=== PATIENT | female | born 1935 | race Hispanic/Latino ===

== ENCOUNTER 2020-12-05 09:34 | Outpatient (CLI) | payer MEDICARE ==
[2020-12-05 09:42] LABS: #Basophils 0.1 thou/uL (0.0-0.2); #Eosinphils 0.1 thou/uL (0.0-0.7); #Monocytes 0.8 thou/uL (0.11-0.59); #Neutrophils 5.1 thou/uL (1.40-6.50); %Basophils 1.7 % (0.0-1.0); %Eosinophils 1.1 % (0.0-10.0); %Lymphocytes 24.3 % (21.0-51.0); %Neutrophils 62.9 % (42.0-75.0); Hemoglobin 12.7 g/dL (12.0-16.0); Mean Corpuscular HGB CONC 31.9 g/dL (32.0-36.0); Mean Corpuscular Hemoglobin 30.3 pg (27.0-31.0); Mean Corpuscular Volume 94.9 fL (78.0-98.0); Mean Platelet Volume 6.2 fL (7.4-10.4); Platelet Count 425 thou/uL (130-400); RBC Distribution Width 13.9 % (11.5-14.5); White Blood Cell (WBC) Count 8.1 thou/uL (4.8-10.8)
[2020-12-05 10:05] LABS: ALT (SGPT) 10 U/L (8-55); AST (SGOT) 14 U/L (5-34); Albumin 3.6 g/dL (3.4-4.8); Alkaline Phosphatase 81 U/L (40-110); Anion Gap 16 mmol/L (10-20); BUN (Urea Nitrogen) 22 mg/dL (9.8-20.1); Bilirubin, Total 0.4 mg/dL (0.2-1.2); Calc. Creatinine Clearance 0 mL/min (70-130); Calcium 9.5 mg/dL (7.8-10.44); Carbon Dioxide 26 mmol/L (23-31); Cardiac Risk 2.3 (Less than 4.5); Chloride 102 mmol/L (98-107); Cholesterol 126 mg/dl (< 200 Desired); Globulin 3.5 g/dL (2.4-3.5); Glucose 131 mg/dL (83-110); HDL Cholesterol 54 mg/dL (>60 Neg Risk); LDL Cholesterol, Calculated 49 mg/dL; Potassium 4.6 mmol/L (3.5-5.1); Protein, Total 7.1 g/dL (6.0-8.3); Sodium 139 mmol/L (136-145); Triglycerides 116 mg/dL (Less than 150)
[2020-12-05 17:14] LABS: Hemoglobin A1c 9.5 % (4.0-6.0)
== END 2020-12-05 09:35 | disposition home or self-care (01) ==
LOC: MADLAB 09:34
PROVIDERS: ATTEND Family Medicine
DX: E03.9 Hypothyroidism, unspecified (principal); E78.5 Hyperlipidemia, unspecified; E11.9 Type 2 diabetes mellitus without complications; I10 Essential (primary) hypertension
CPT/HCPCS: 80053; 80061; 83036; 84443; 85025

== ENCOUNTER 2020-12-25 15:19 | Outpatient (CLI) | payer MEDICARE ==
--- NOTE | 2020-12-25 16:48 | CT ---
CT OF THE ABDOMEN AND PELVIS WITH IV CONTRAST INDICATION: Right upper quadrant abdominal pain for 2 weeks of loss of appetite COMPARISON: None FINDINGS: ABDOMEN: Lung bases: There are patchy areas of interstitial and groundglass opacity involving both lower lobe suspicious for an atypical pneumonia. Liver: There is a small focal area of hypodensity adjacent to falciform ligament suspicious for an ar ea of focal fatty infiltration. Gallbladder: Normal appearing. Pancreas: Normal. Adrenal glands: Normal. Spleen: Normal. Kidneys and ureters: Normal. No hydronephrosis. Vasculature: There are mild vascular calcifications seen involving the visualized vasculature. Lymph nodes:No lymphadenopathy. Free fluid in abdomen:No free fluid is evident. PELVIS: Small and large bowel: There is a moderate amount retained stool within the colon. Small bowel is of normal caliber. Appendix:Normal Bladder: There is mild wall thickening and moderate distention of the bladder. Rectal and perirectal soft tissues:Normal. Reproductive structures: Uterus is surgically absent. The right and left ovary are present. Free fluid in pelvis: No free fluid is evident. Lymphadenopathy pelvis: No lymphadenopathy is evident. Osseous structures: There is mild diffuse osteopenia. There is scattered degenerative and osteoarthr itic changes. There is a left hip endoprosthesis. Soft tissues:Normal. IMPRESSION: 1. Bibasilar interstitial and airspace opacities suspicious for an atypical pneumonia. Recommend kasandra elation with Covid 19 status. 2. Findings suspicious for areas of focal fatty infiltration near the falciform ligament in the right hepatic lobe. 3. Moderate distention of the bladder. There is suggested mild thickening of the bladder wall which m ay reflect component of cystitis. Recommend correlation with urinary laboratories.
== END 2020-12-25 15:20 | disposition home or self-care (01) ==
LOC: MADCT 15:19
PROVIDERS: ATTEND Family Medicine
DX: R10.9 Unspecified abdominal pain (principal); R91.8 Other nonspecific abnormal finding of lung field; N32.89 Other specified disorders of bladder
CPT/HCPCS: 74177

== ENCOUNTER 2024-12-20 12:09 | Emergency (ER) | payer MEDICARE ==
[2024-12-20 13:35] LABS: #Basophils 0.1 thou/uL (0.0-0.2); #Lymphocytes 1.4 thou/uL (1.20-3.40); #Monocytes 0.5 thou/uL (0.11-0.59); #Neutrophils 4.5 thou/uL (1.40-6.50); %Basophils 0.9 % (0.0-1.0); %Eosinophils 0.2 % (0.0-10.0); %Lymphocytes 21.1 % (21.0-51.0); %Monocytes 7.5 % (0.0-10.0); %Neutrophils 70.3 % (42.0-75.0); Hematocrit 39.4 % (36.0-47.0); Hemoglobin 12.5 g/dL (12.0-16.0); Mean Corpuscular HGB CONC 31.7 g/dL (32.0-36.0); Mean Corpuscular Hemoglobin 28.9 pg (27.0-31.0); Mean Corpuscular Volume 91.1 fl (78.0-98.0); Mean Platelet Volume 8.2 fL (7.4-10.4); Platelet Count 181 10x3/uL (130-400); RBC Distribution Width 13.6 % (11.5-14.5); Red Blood Cell (RBC) Count 4.33 mill/uL (4.20-5.40); White Blood Cell (WBC) Count 6.5 10x3/uL (4.8-10.8)
[2024-12-20 13:52] LABS: ALT (SGPT) 11 U/L (8-55); AST (SGOT) 17 U/L (5-34); Albumin 3.5 g/dL (3.4-4.8); Alkaline Phosphatase 70 U/L (40-110); Anion Gap 13 mmol/L (10-20); BUN (Urea Nitrogen) 30 mg/dL (9.8-20.1); Bilirubin, Total 0.5 mg/dL (0.2-1.2); Calc. Creatinine Clearance 0 mL/min (70-130); Carbon Dioxide 24 mmol/L (23-31); Chloride 106 mmol/L (98-107); Estimated GFR 63; Globulin 3.9 g/dL (2.4-3.5); Glucose 118 mg/dL (83-110); Potassium 4.2 mmol/L (3.5-5.1); Protein, Total 7.4 g/dL (5.8-8.1); Sodium 139 mmol/L (136-145)
[2024-12-20] MEDS ORDERED: fentaNYL 50 mcg/mL 1 mL Vial ONE ×3 (13:54→17:18)
== END 2024-12-20 17:27 | disposition short-term general hospital (02) ==
LOC: MADERS 12:09
DX: M97.02XA Periprosthetic fracture around internal prosthetic left hip joint, initial encounter (principal); E11.9 Type 2 diabetes mellitus without complications; E03.9 Hypothyroidism, unspecified; F03.90 Unspecified dementia, unspecified severity, without behavioral disturbance, psychotic disturbance, mood disturbance, and anxiety; W07.XXXA Fall from chair, initial encounter; Y93.89 Activity, other specified; Z79.899 Other long term (current) drug therapy; Z75.8 Other problems related to medical facilities and other health care
CPT/HCPCS: 73502; 73562; 80053; 85025; 94760; J3010; 36415; 96374; 96376

== ENCOUNTER 2025-01-14 10:51 | Outpatient (CLI) | payer OTHER | END 2025-01-14 10:52 | disposition home or self-care (01) | LOC: MADRAD 10:51 | PROVIDERS: ATTEND Nurse Practitioner Family | DX: R79.81 Abnormal blood-gas level (principal) | CPT/HCPCS: 71045 ==